=== PATIENT | male | born 1940 | race Two or more races ===

== ENCOUNTER 2019-04-19 07:07 | Outpatient (CLI) | payer OTHER ==
[~2019-04-19 07:07] MED LIST: CARAFATE1 G PO; CENTRUM SILVER1 TAB PO; OMEGA 3; SAW PALMETTO160 MG PO; TUMS CALCI300 MG( 75 PO; [UNRECOGNIZED DRUG - OTHER] PO
== END 2019-04-19 07:10 | disposition home or self-care (01) ==
LOC: NUCLEAR 07:07
DX: I20.9 Angina pectoris, unspecified (principal); I11.9 Hypertensive heart disease without heart failure
CPT/HCPCS: 78452; 93017; A9500; J0153